=== PATIENT | female | born 1945 | race Caucasian/White ===

== ENCOUNTER → 2018-04-23 | Outpatient (CLI) | payer MEDICARE, OTHER | LOC: M SMT 11:58 | DX: J45.50 Severe persistent asthma, uncomplicated (principal) | CPT/HCPCS: 71046 ==

== ENCOUNTER → 2019-05-11 | Outpatient (CLI) | payer MEDICARE, OTHER ==
[~2019-05-11] MED LIST: BABY81CH; BROVANA; CALC12502; COLA100C2; COUMADIN; COZA50TA18; ESTR3TA; FLEXERIL; PERC5TAB8; PRIL20CA; [UNRECOGNIZED DRUG - MIXTURE]; [UNRECOGNIZED DRUG - OTHER]; [UNRECOGNIZED DRUG - OTHER]
--- NOTE | 2019-05-11 09:39 | REP ---
Chest x-ray: Two views. History: COPD.. Comparison study: April 23, 2018. Findings: There are clips in right upper quadrant post cholecystectomy. The lungs are well inflated and clear. The pleural angles are sharp. Cardiomediastinal silhouette is unremarkable. There are degenerative disc changes in the thoracic and visualized lumbar spine segments. No acute bony abnormality is seen. Impression: No active cardiopulmonary disease. Electronically Signed by George Rivera MD 05/11/2019 09:31 A
== END ==
LOC: M SMT 09:11
PROVIDERS: ATTEND Internal Medicine Pulmonary Disease
DX: J44.9 Chronic obstructive pulmonary disease, unspecified (principal)

== ENCOUNTER → 2019-09-15 | Outpatient (CLI) | payer MEDICARE, OTHER ==
--- NOTE | 2019-09-18 08:08 | SLEEPCENT ---
DATE OF PROCEDURE: 09/15/2019 Ordered by: JORGE Montez Nocturnal polysomnography was performed for evaluation of sleep physiology in this patient with a history of pulmonary hypertension and nonrestorative sleep who has multiple comorbidities. 7 hours and 39 minutes of data were reviewed. There were 316 minutes of sleep identified. Sleep latency was prolonged at 17.5 minutes. REM latency was prolonged at 249 minutes. Sleep architecture showed fragmentation. Overall sleep efficiency was 69.8%. The patient's electrocardiogram showed a sinus rhythm with an average heart rate of 64 beats per minute. PVCs were noted and rate variability was seen between 44 and 84 beats per minute. EEG showed normal waveforms for awake and sleep. There were 77 respiratory events identified of 10 seconds in duration or greater for an apnea-hypopnea index of 14.60. The events were primarily obstructive, not exclusive to sleep stage nor body posture. Arousals from respiratory events occurred 12 times per hour and oxygen desaturations were seen into the 70s. There was some limb activity, but few arousals were noted. IMPRESSION Obstructive sleep apnea syndrome (G47.33). Apnea-hypopnea index 14.6. RECOMMENDATIONS The patient should be encouraged to return to the sleep disorder center for pressure therapy. In the interim, alcohol and sedative avoidance should be practiced and caution exercised during the operation of motor vehicles.
== END ==
LOC: M SLEEP 19:14
PROVIDERS: ATTEND Nurse Practitioner Adult Health
DX: G47.33 Obstructive sleep apnea (adult) (pediatric) (principal)

== ENCOUNTER → 2019-10-13 | Outpatient (CLI) | payer MEDICARE, OTHER ==
--- NOTE | 2019-10-15 12:47 | SLEEPCENT ---
DATE OF PROCEDURE: 10/13/2019 ORDERING PROVIDER: Lili Murillo. INTERPRETATIONS: Nocturnal polysomnography was performed for the titration of pressure therapy in this patient with obstructive sleep apnea syndrome. Apnea-hypopnea index 14.6. For testing, the patient was fit with a [employer] Sarahy View full-face mask of small size, 4 cm of water pressure applied to the circuit, and the lights were extinguished. 8 hours and 10 minutes of data were reviewed. There were 286.5 minutes of sleep identified. Sleep latency was prolonged at 162 minutes. REM sleep was not achieved. Overall sleep architecture showed poor progression. Sleep efficiency was 59.4%. The patient's electrocardiogram showed a sinus rhythm with an average heart rate 62 beats per minute. There was one brief episode of supraventricular tachycardia that lasted less than 10 seconds. EEG showed normal waveforms for awake and sleep. Respiratory events were best palliated with CPAP at a pressure of +9. Persistent hypoxemia prompted the addition of supplemental oxygen. Best sleep was seen on CPAP pressure +9 with 2 liters of oxygen bled through the system. IMPRESSION: Obstructive sleep apnea syndrome (G47.33) RECOMMENDATIONS: Nightly use of pressure therapy 9 cm of water with 2 liters of oxygen bled through the system.
== END ==
LOC: M SLEEP 18:58
PROVIDERS: ATTEND Physician Assistant
DX: G47.33 Obstructive sleep apnea (adult) (pediatric) (principal)

== ENCOUNTER → 2020-04-17 | Outpatient (CLI) | payer MEDICARE, OTHER ==
--- NOTE | 2020-05-03 13:08 | REP ---
CHEST X-RAY: 2-VIEWS HISTORY: Severe persistent asthma. COMPARISON: Chest x-ray 05/11/2019. FINDINGS: PA and lateral views of the chest demonstrate that the lungs are symmetrically aerated and clear. Pleural angles are sharp. Heart is not enlarged. The aorta is somewhat tortuous. Pulmonary vasculature is not increased. No significant bony abnormality is seen. Oxygen delivery tubing is noted. IMPRESSION: No active disease. MTDD
== END ==
LOC: M RAD 15:25
PROVIDERS: ATTEND Nurse Practitioner Adult Health
DX: J45.50 Severe persistent asthma, uncomplicated (principal)

== ENCOUNTER → 2021-09-11 | Outpatient (REF) | payer MEDICARE, OTHER | LOC: M LAB REF 17:09 | PROVIDERS: ATTEND Internal Medicine Nephrology | DX: E83.42 Hypomagnesemia (principal) ==